=== PATIENT | female | born 1960 | race Two or more races ===

== ENCOUNTER 2018-12-12 07:27 | Inpatient (IN) | payer OTHER ==
[~2018-12-12] VITALS: Ht 160 cm; Wt 78.0 kg
[2018-12-12 07:37] VITALS: Ht 160 cm; Wt 78.0 kg
--- NOTE | 2018-12-12 07:52 | NUR ---
PT BIBA FROM HOME FOR RECENT ONSET FEVER AND CHILLS. PT APPEARS TO BE IN GOOD SPIRITS; APPEARS COMFORTABLE. NO S/S OF RESP DISTRESS. PT HAS PLEASANT AFFECT
--- NOTE | 2018-12-12 08:03 | NUR ---
PCXR AT BEDSIDE
[2018-12-12 08:11] LABS: PLATELET COUNT 263 x10^3mcL (130-400)
[2018-12-12 08:16] LABS: CARBON DIOXIDE 23.6 mmol/L (21-32); CREATININE SERUM 1.2 mg/dL (0.6-1.0)
[2018-12-12 08:26] LABS: BILIRUBIN TOTAL 0.6 mg/dL (0.20-1.00); TOTAL PROTEIN, SERUM 7.7 g/dL (6.4-8.2)
[2018-12-12 08:30] LABS: ALBUMIN 3.2 g/dL (3.4-5.0)
--- NOTE | 2018-12-12 09:03 | NUR ---
PT SLEEPING. IVPB ABX INFUSING ORDERED. EASY TO AROUSE AWAKE. NAD NOTED
[2018-12-12] MEDS ORDERED: METFORMIN HCL850 MG PO ×2 (09:39→09:44)
[2018-12-12] MEDS ORDERED: GLYBURIDE5 MG PO (09:44)
[2018-12-12 09:56] LABS: UA SPECIFIC GRAVITY 1.025 (1.005-1.035); microscopic required? YES
[2018-12-12 09:58] LABS: urine erythrocyte 2+ (NEGATIVE)
--- NOTE | 2018-12-12 10:15 | NUR ---
REPORT GIVEN TO ERICKSON BENJAMIN
[2018-12-12 10:32] VITALS: BP 108/54
--- NOTE | 2018-12-12 10:32 | NUR ---
REC PT VIA GURNEY AMBULATED TO BED. AA/O X4/ BREATHING EVEN AND UNLABORED ON RA. NO ACUTE RESP DISTRESS OR SOB NOTED. TELE 12 NSR, HR 84, DENIES ANY CP OP PRESSURE. PULSES PRESENT, NO EDEMA NOTED TO BLE OR BUE. BOWEL SOUNDS ACTIVE IN ALL FOUR QUADS. ABDOMEN A BIT DISTENDED, DENIES ANY DISCOMFORT. LAST BM 12/12 REG. VOIDS FREELY. DENIES ANY PAIN OR DISCOMFORT AT THIS TIME.SKIN WARM TO TOUCH AND INTACT. IV TO THE LAC INTACT/ PATENT/ HEPLOCKED. KAZAKH SPK. CALL LIGHT IN REACH/ BED IN LOW POSITION. WILL CONTINUE PLAN OF CARE.
[2018-12-12 12:20] LABS: ATYPICAL LYMPH 1 %; BAND NEUTROPHIL 27 % (0-10); BASOPHIL 0 % (0-2); MONOCYTE 4 % (0-7); SEGMENTED NEUTROPHILS 62 % (37-75)
[2018-12-12 12:21] LABS: PLATELET MORPHOLOGY PLATELETS DECREASED
[2018-12-12 12:22] LABS: rbc morphology (normal/abnorm) ABNORMAL (NORMAL)
[2018-12-12 16:53] VITALS: BP 111/83
--- NOTE | 2018-12-12 17:09 | NUR ---
MEDICATED PER EMAR FOR TEMP 100.8 PER EMAR. WILL CONTINUE TO MONITOR.
--- NOTE | 2018-12-12 18:09 | NUR ---
LISSA TEMP 99.2, PT DENIES ANY DISCOMFORT. SITTING UP IN BED HAVING DINNER. WILL CONTINE TO MONITOR.
--- NOTE | 2018-12-12 18:41 | NUR ---
NO ACUTE CHANGES AT THIS TIME. NO ACUTE RESP DISTRESS OR SOB NOTED. DENIES ANY PAIN OR DISCOMFORT AT THIS TIME. CALL LIGHT IN REACH. BED IN LOW POSITION. IV TO THE LAC INTACT AND PATENT, INFUSING AT 50 ML/HR, NO REDNESS OR SWELLING. WILL ENDORSE TO INCOMING RN.
[2018-12-12 19:41] VITALS: BP 104/52
--- NOTE | 2018-12-12 19:59 | NUR ---
RECEIVED PT IN BED AAOX4 INDIAN SPEAKING ONLY , LUNG SOUNDS CTA , ABD SOFT BS ACTIVE X4 , PT DENY PAIN AT THE MOMENT , ON TELE NUMBER 12 THAT SHOWS NSR HR 78. CALL LGITH WITHIN PT'S REACH , WILL CON'T TO MONITOR AND ASSIST PT WITH CARE .
--- NOTE | 2018-12-13 01:21 | NUR ---
PT'S IN BED WITH EYES CLOSED , PIV INTACT INFUSING WELL , TELE NSR .
--- NOTE | 2018-12-13 04:01 | NUR ---
I HAVE REVIEWED THE DATA COLLECTION BY HEEL SEAT FITTER (NAME):MILVIA HITCHCOCK ENTERED ON (DATE/TIME): I CONCUR WITH THE DATA AND ANY EXCEPTIONS OR COMMENTS ARE LISTED BELOW:
[2018-12-13 04:47] VITALS: BP 119/42
--- NOTE | 2018-12-13 05:44 | NUR ---
MEDICATED PT FOR NERVE PAIN , PT C/O RIGHT CHEECKS PAIN RADIATING TO HER RIGH EAR PER PT SHE HAS THIS PAIN FOR COUPLE OF MONTH NOTHING WAS DONE BECAUSE SHE DID NOT HAVE INSURANCE, PT WAS WONDERING SINCE SHE'S HERE IF THEY CAN DO SOME TEST TO SEE WHAT'S WRONG WITH HER FACE , PAGED DR NAVARRO SEVERAL TIMES NO ANSEWER WILL ENDORSE TO AM NURSE TO FOLLOW UP .
[2018-12-13 06:24] LABS: PLATELET COUNT 230 x10^3mcL (130-400); RED CELL DISTRIBUTION WIDTH 13.7 % (11.5-14.5)
[2018-12-13 06:53] LABS: CALCIUM 8.4 mg/dL (8.5-10.1); CARBON DIOXIDE 22.7 mmol/L (21-32); CHLORIDE SERUM 101 mmol/L (98-107); GFR1 > 60 mL/min; GLUCOSE SERUM 202 mg/dL (74-106); POTASSIUM SERUM 3.9 mmol/L (3.5-5.1); SODIUM SERUM 135 mmol/L (136-145)
--- NOTE | 2018-12-13 07:05 | NUR ---
RECEIVED BEDSIDE REPORT FROM CORK WIRER NURSE AT THIS TIME. PATIENT RESTING COMFORTABLY IN BED. NO APPARENT DISTRESS OR DICOMFORT NOTED. BREATHING EVEN AND UNLABORED. NO RESPIRATORY DISTRESS NOTED. PATIENT DENIES CHEST PAIN AT THIS TIME. IV PATENT AND INTACT TO LAC. ALL QUESTIONS AND CONCERNS ADDRESSED. ALL NEEDS ATTENDED TO. WILL CONTINUE TO MONITOR
[2018-12-13 08:39] VITALS: BP 102/48
--- NOTE | 2018-12-13 09:14 | NUR ---
ALL MORNING MEDICATIONS ADMINISTERED. PATIENT TOLERATED WELL. NO ADVERSE EFFECTS NOTED. ALL NEEDS ATTENDED TO. WILL CONTINUE TO MONITOR
--- NOTE | 2018-12-13 11:30 | NUR ---
PATIENT BLOOD SUGAR 272 AT THIS TIME. 9 UNITS OF REGULAR INSULIN REQUIRED (SEE EMAR). ALL NEEDS ATTENDED TO. WILL CONTINUE TO MONITOR
[2018-12-13 11:40] LABS: BAND NEUTROPHIL 0 % (0-10); BASOPHIL 0 % (0-2); MONOCYTE 5 % (0-7); PLATELET MORPHOLOGY PLATELETS INCREASED; SEGMENTED NEUTROPHILS 91 % (37-75)
[2018-12-13 11:41] LABS: rbc morphology (normal/abnorm) ABNORMAL (NORMAL)
--- NOTE | 2018-12-13 13:00 | NUR ---
PATIENT SITTING UP IN BED EATING LUNCH AT THIS TIME. PATIENT TOLERATING DIET WELL. NO APPARENT DISTRESS OR DISCOMFORT NOTED. ALL NEEDS ATTENDED TO. WILL CONTINUE TO MONITOR
[2018-12-13 13:39] VITALS: BP 133/49
[2018-12-13 16:30] VITALS: BP 122/60
--- NOTE | 2018-12-13 16:30 | NUR ---
PATIENT BLOOD SUGAR 260 AT THIS TIME. 9 UNITS OF REGULAR INSULIN REQUIRED (SEE EMAR). ALL NEEDS ATTENDED TO. WILL CONTINUE TO MONITOR
--- NOTE | 2018-12-13 17:49 | NUR ---
PATIENT SITTING UP IN BED EATING DINNER AT THIS TIME. PATIENT TOLERATING DIET WELL. NO APPARENT DISTRESS OR DISCOMFORT NOTED. FAMILY MEMBER AT BEDSIDE. ALL NEEDS ATTENDED TO. WILL CONTINUE TO MONITOR
--- NOTE | 2018-12-13 18:36 | NUR ---
PATIENT RESTING COMFORTABLY IN BED AT THIS TIME. NO APPARENT DISTRESS OR DISCOMFORT NOTED. IV TO THE LAC PATENT AND INTACT. ALL QUESTIONS AND CONCERNS ADDRESSED. SAFETY PRECAUTIONS MAINTAINED. ALL NEEDS ATTENDED TO. WILL ENDORSE ALL CARE TO CUTTER V GROOVE NURSE
--- NOTE | 2018-12-13 20:00 | NUR ---
PT A/A/O X4. DENIES DIZZINESS AND HEADACHE. BREATH SOUNDS DIMINISHED ABRIL LUNGS. BREATHING EVEN AND UNLABORED ON ROOM AIR. PRODUCTIVE COUGH NOTED. DENIES CHEST PAIN AND PRSSSURE. BOWEL SOUNDS ACTIVE. NO C/O N/V AND ABD PAIN. IV INTACT ON THE LAC INFUSING WITH NS AT 50 ML/HR. MADE PT COMFORTABLE. PLACED CALL LIGHT WITH IN REACH. WILL CONTINUE TO MONITOR.
[2018-12-13 20:27] VITALS: BP 115/46
--- NOTE | 2018-12-14 00:57 | NUR ---
PT RESTING WITH EYES CLOSED. NO DISTRESS AND DISCOMFORT NOTED. WILL CONTINUE TO MONITOR.
[2018-12-14 06:01] VITALS: BP 127/53
[2018-12-14 06:10] LABS: BASOPHIL % 0.2 % (0-2); PLATELET COUNT 233 x10^3mcL (130-400); RED CELL DISTRIBUTION WIDTH 13.6 % (11.5-14.5)
--- NOTE | 2018-12-14 06:22 | NUR ---
PT QUIET AND RESTING. NO FEVER NOTED THUS FAR. IV INTACT AND INFUSING ORDERED. MADE PT COMFORTABLE. WILL ENDORSE TO THE AM NURSE ACCORDINGLY.
[2018-12-14 06:33] LABS: CALCIUM 8.5 mg/dL (8.5-10.1); CARBON DIOXIDE 24.8 mmol/L (21-32); CHLORIDE SERUM 101 mmol/L (98-107); GFR1 > 60 mL/min; GLUCOSE SERUM 173 mg/dL (74-106); POTASSIUM SERUM 4.2 mmol/L (3.5-5.1); SODIUM SERUM 136 mmol/L (136-145)
--- NOTE | 2018-12-14 07:10 | NUR ---
RECEIVED BEDSIDE REPORT FROM DIGGING MACHINE OPERATOR NURSE AT THIS TIME. PATIENT RESTING COMFORTABLY IN BED WITH EYES CLOSED. NO APPARENT DISTRESS OR DISCOMFORT NOTED. BREATHING EVEN AND UNLABORED. NO RESPIRATORY DISTRESS NOTED. NO INDICATION OF CHEST PAIN AT THIS TIME. IV PATENT AND INTACT INFUSING NORMAL SALINE. ALL NEEDS ATTENDED TO. WILL CONTINUE TO MONITOR
[2018-12-14] MEDS ORDERED: LEVAQUIN750 MG PO (08:16)
--- NOTE | 2018-12-14 08:39 | NUR ---
ALL MORNING MEDICATIONS ADMINISTERED. PATIENT TOLERATED WELL. NO ADVERSE EFFECTS NOTED. NO APPARENT DISTRESS OR DISCOMFORT NOTED. ALL NEEDS ATTENDED TO. WILL CONTINUE TO MONITOR
[2018-12-14 09:21] VITALS: BP 104/40
[2018-12-14 10:17] VITALS: BP 104/40
--- NOTE | 2018-12-14 11:30 | NUR ---
PATIENT STABLE TO BE DISCHARGED TO HOME. DISCHARGE INSTRUCTIONS GIVEN WELL EDUCATION. INSTRUCTED PATIENT ABOUT FOLLOW UP APPOINTMENT USING LEASING PROFESSIONAL PHONE. PATIENT VERBALIZES UNDERSTANDING. IV REMOVED WITH CATH INTACT. ID BANDS REMOVED. TELE MONITOR REMOVED AND RETURNED TO FASHION COORDINATOR. ALL BELONGINGS WITH PATIENT. ALL QUESTIONS AND CONCERNS ADDRESSED. ALL NEEDS ATTENDED TO. PATIENT TO BE ESCORTED DOWN TO THE LOBBY BY RN
== END 2018-12-14 11:42 | disposition home or self-care (01) | DRG 720 ==
LOC: ED 07:27 → DU 09:28
PROVIDERS: Emergency Medicine; ADMIT Internal Medicine Pulmonary Disease
DX: A41.9 Sepsis, unspecified organism (principal); E11.65 Type 2 diabetes mellitus with hyperglycemia; J20.9 Acute bronchitis, unspecified; E66.01 Morbid (severe) obesity due to excess calories; N12 Tubulo-interstitial nephritis, not specified as acute or chronic; E86.0 Dehydration; Z68.30 Body mass index [BMI] 30.0-30.9, adult; Z23 Encounter for immunization
CPT/HCPCS: 82962; 87804; 90658; J0696; J1650; J2543; J7030; Q0092